=== PATIENT | male | born 1950 | race Caucasian/White ===

== ENCOUNTER 2024-05-19 12:25 | Emergency (ER) | payer MEDICARE, OTHER, SELFPAY ==
[2024-05-19 12:27] VITALS: BP 155/82; PULSE 56; RESP 16; TEMP 36.7; O2SAT 97
--- NOTE | 2024-05-19 13:10 | ED.GENADUL_ITS ---
Discharge Plan Disposition Patient Disposition: Home Condition: Good Discharge Details Clinical Impression: Mixed conductive and sensorineural hearing loss, unilateral, left ear, with unrestricted hearing on the contralateral side ED Provider: Michael Devi Home Meds and New Rx's Prescriptions: No Action aspirin 81 mg tablet,chewable 81 mg PO DAILY Rx Instructions: 4x week famotidine 20 mg tablet 20 mg PO BID rosuvastatin [Crestor] 5 mg tablet 5 mg PO DAILY albuterol 90 mcg/actuation aerosol 90 mcg inhalation .Q6 PRN bisoprolol fumarate 5 mg tablet 1.25 mg PO DAILY cromolyn 100 mg/5 mL concentrate 200 mg PO QID PRN PRN dicyclomine 10 mg capsule 10 mg PO QID nitroglycerin 400 mcg/spray aerosol,spray 0.4 mg sublingual Q5M PRN Rx Instructions: do not exceed 3 doses per episode Discharge Instructions Additional Instructions: At this time as we discussed together there is no current evidence to suggest stroke, ear infection, or other significant abnormality. There is a small component of wax on the tympanic membrane itself which may be a component what is limiting your ability to hear certain deeper sounds. We have placed a referral with the ENT specialist at [facility]. They will contact you for an a ppointment time. If you notice any worsening of your symptoms, or any new symptoms such as vomiting, diarrhea, fever, chills, shortness of breath, chest pain, numbness, weakness, or fainting , please return immediately to the emergency department for reevaluation. Please follow up with your primary care provider as soon as possible for reassessment and reevaluation. As always, it was a pleasure participating in your medical care today. HPI General Date/Time Provider Initiated Documentation: 05/19/24 12:35 . HPI Narrative: 73-year-old male with a past medical history of atherosclerotic disease without a known history of stroke or heart attack who takes a daily aspirin, but also has known sensorineural hearing loss for which she has hearing aids bilaterally, presents today for an acute hearing change in his left ear. Patient sleeps with the earplugs. This morning when he woke up he pulled his earplug out and noticed that there was an atypical hearing component in his left ear. He states that he was barely able to hear anything at that time. He was notably unable to hear anything deep, but he was able to hear some slightly more high-pitched sounds. He denies any falls or trauma. He felt slightly dizzy at that time with removal of the ear plug, and has had an episode or 2 of that since, but no significant vertigo, dizziness, ataxia, falls, or severe acute tinnitus. He denies any headache. He denies any numbness tingling or weakness. No recent viral infections. He did have a total body MRI performed 1 year ago, and this was relatively benign without any signs of tumor or mass. He denies any other complaints at this time. No other modifying factors. He has noted that the symptoms have improved over the last few hours, and his hearing is getting better. Related Data Home Medications ?Medication ?Instructions ?Recorded ?Confirmed albuterol 90 mcg/actuation aerosol 90 mcg inhalation .Q6 PRN 05/19/24 05/19/24 inhaler aspirin 81 mg chewable tablet 81 mg PO DAILY 05/19/24 05/19/24 bisoprolol fumarate 5 mg tablet 1.25 mg PO DAILY 05/19/24 05/19/24 cromolyn 100 mg/5 mL oral 200 mg PO QID PRN PRN 05/19/24 05/19/24 concentrate dicyclomine 10 mg capsule 10 mg PO QID 05/19/24 05/19/24 famotidine 20 mg tablet 20 mg PO BID 05/19/24 05/19/24 nitroglycerin 400 mcg/spray 0.4 mg sublingual Q5M PRN 05/19/24 05/19/24 translingual aerosol rosuvastatin 5 mg tablet (Crestor) 5 mg PO DAILY 05/19/24 05/19/24 Allergies Allergy/AdvReac Type Severity Reaction Status Date / Time diclofenac AdvReac Intermediate Other (See Verified 05/19/24 12:33 Comment) General Stated Complaint: EarProblem LAVINIA: 4 Exam Narrative Exam Narrative: 1.Const: Well-nourished, Well-developed, appearing stated age 2.Eyes: PERRL, no conjunctival injection, and symmetrical lids. 3.ENT: Atraumatic external nose and ears. Moist MM. Neck: Symmetric, trachea midline, No thyromegaly. Evaluation of the right ear demonstrates normal canal, normal tympanic membrane is bentley and pearly. No redness drainage or discharge. Evaluation of the left ear demonstrates a bentley and pearly tympanic membrane, no erythema, no fluid or effusion. There is a small dollop of wax on the mid aspect of the tympanic membrane on the left though. No redness or bleeding. Tuning fork testing demonstrates equal air conduction bilaterally. However subjectively he feels that he is able to hear the deeper sounds slightly less in the left ear compared to the right. Bony conduction from the mastoid process is relatively equal bilaterally. Bullock testing appears to be somewhat symmetric with questionable slight lateralization to the right. 4.CVS: +S1/S2, Peripheral pulses 2+ and equal in all extremities. Brisk capillary refill in all extremities. 5.RESP: Unlabored respiratory effort. Clear to auscultation bilaterally. No wheezes rales or rhonchi 6.GI: Soft, Nontender/Nondistended, No hepatosplenomegaly. No guarding or rebound. 7.MSK: Normocephalic/Atraumatic, Extremities w/o deformity or ttp No cyanosis or clubbing, Normal movement of all extremities 8.Skin: Warm, Dry. No rashes or lesions. 9.Neuro: image editor II-XII grossly intact. Sensation grossly intact, no focal neurologic deficits. All 6 cardinal planes of vision are fully intact. No evidence of rotatory or vertical nystagmus. The patient demonstrated a normal [id number], good dexterity. There was no evidence of dysdiadochokinesia. Patient was able to ambulate without difficulty. There was no wide-based gait. Romberg testing was normal. Cahg-ai-rxop testing was normal. Sensation was inta ct bilaterally as well as muscle strength bilaterally for all extremities. Patient was able to verbalize butter cup with no slurring, or miss pronunciation. 10.Psych: (AAO) x3. Appropriate mood and affect Course Vital Signs Vital signs: Vital Signs Temperature 36.7 C 05/19/24 12: Pulse 56 L 05/19/24 12: Respiratory Rate 16 05/19/24 12: Blood Pressure 155/82 H 05/19/24 12: Pulse Oximetry 97 05/19/24 12: Temperature 36.7 C 05/19/24 12: Pulse 56 L 05/19/24 12: Respiratory Rate 16 05/19/24 12: Blood Pressure 155/82 H 05/19/24 12:27 Pulse Oximetry 97 05/19/24 12:27 Pain Level 0 05/19/24 12:38 Medical Decision Making 73-year-old male with a past medical history of atherosclerotic disease without a known history of stroke or heart attack who takes a daily aspirin, but also has known sensorineural hearing loss for which she has hearing aids bilaterally, presents today for an acute hearing change in his left ear. Patient sleeps with the earplugs. This morning when he woke up he pulled his earplug out and noticed that there was an atypical hearing component in his left ear. He states that he was barely able to hear anything at that time. He was notably unable to hear anything deep, but he was able to hear some slightly more high-pitched sounds. He denies any falls or trauma. He felt slightly dizzy at that time with removal of the ear plug, and has had an episode or 2 of that since, but no significant vertigo, dizziness, ataxia, falls, or severe acute tinnitus. He denies any headache. He denies any numbness tingling or weakness. No recent viral infections. He did have a total body MRI performed 1 year ago, and this was relatively benign without any signs of tumor or mass. He denies any other complaints at this time. No other modifying factors. He has noted that the symptoms have improved over the last few hours, and his hearing is getting better. Evaluation of the right ear demonstrates normal canal, normal tympanic membrane is bentley and pearly. No redness drainage or discharge. Evaluation of the left ear demonstrates a bentley and pearly tympanic membrane, no erythema, no fluid or effusion. There is a small dollop of wax on the mid aspect of the tympanic membrane on the left though. No redness or bleeding. Tuning fork testing demonstrates equal air conduction bilaterally. However subjectively he feels that he is able to hear the deeper sounds slightly less in the left ear compared to the right. Bony conduction from the mastoid process is relatively equal bilaterally. Bullock testing appears to be somewhat symmetric with questionable slight lateralization to the right. Symptoms are somewhat atypical and seem to represent a bit of a combined loss, the patient does have sensorineural hearing loss at baseline, but this change may be a combination of acute worsening of conductive versus chronic loss. I am also concerned that the slight difference of tonal assessment is noted in the left ear could be related to the small piece of wax that is present on the tympanic membrane causing a mild tonal deficit because of this. Regardless, there is no clinical evidence of ataxia, labyrinthitis, stroke, or other neurologic deficit. No evidence of mastoid tenderness to suggest mastoiditis. No falls to suggest bleed. No evidence of otitis media or large effusion. We did discuss options of CT imaging as MRI is currently unavailable. At this time I do not see an emergent indication for CT imaging as there is no signs to suggest stroke, he had a recent brain MRI which was otherwise negative. At this time I do feel that the patient is stable for discharge, suspect that the small bit of wax is the cause of the slight hearing change. That being said he does feel that he has had a notable improvement since the initial event, and that things are certainly beginning to more normalize. I do not feel that the small piece of wax would be appropriate for instrumentation to remove secondary to its proximity to the tympanic membrane. At this time with a reassuring exam, patient will be discharged home. We will recommend outpatient ENT follow-up and we will place referral at [facility] for this as that is where he gets his normal care. I have extensively reviewed the treatment plan and discharge instructions with the patient and their family. I have addressed all patient concerns at this time. The patient and family was made aware of what symptoms to monitor for that would warrant a return to the emergency department. Discussed the plan with the patient and family, they demonstrate verbal understanding and agreement with our assessment and plan at this time. The documentation in this chart was dictated using J-Kan dictation software. Please excuse any dictation errors. Quality:SDOH Health Related Social Needs: No Data to Display [facility] All Active Problems (Updated 05/19/24 @ 13:16 by Michael Devi DO) Mixed conductive and sensorineural hearing loss, unilateral, left ear, with unrestricted hearing on the contralateral side (Acute) Social History Smoking/Tobacco Use Status: Former Tobacco Use Quit Date: 05/19/24 Smoking risk assessment performed?: Yes Alcohol Intake: never Drug use: Never Substance use type: does not use Housing: house Do you feel safe at home: Yes Do you feel safe in your relationship?: Yes
[2024-05-19 13:20] VITALS: BP 109/58; PULSE 54; RESP 16; O2SAT 98
== END 2024-05-19 13:23 | disposition home or self-care (01) ==
LOC: ER 13:24
PROVIDERS: Emergency Provider Student in an Organized Health Care Education/Training Program; PCP Family Medicine
DX: H90.72 Mixed conductive and sensorineural hearing loss, unilateral, left ear, with unrestricted hearing on the contralateral side (principal); Z79.82 Long term (current) use of aspirin; Z87.891 Personal history of nicotine dependence
CPT/HCPCS: 99283